=== PATIENT | female | born 1955 | race African-American/Black ===

== ENCOUNTER 2017-09-04 21:30 | Emergency (ER) | payer OTHER ==
[~2017-09-04] VITALS: Ht 152.4 cm; Wt 105.0 kg
[~2017-09-04 21:30] MED LIST: ALBU8I INH; HYDR-3535 PO; MECL25CH PO; MOBI15TA PO
[2017-09-04 21:48] VITALS: BP 134/79; PULSE 76; RESP 16; TEMP 98.9; O2SAT 98
--- NOTE | 2017-09-04 22:43 | RADRPT ---
EXAM DATE/TIME: 09/04/2017 22:08 [place] COMPARISON: No previous studies available for comparison. INDICATIONS : Pain post fall. MEDICAL HISTORY : Hypercholesterolemia. Hypertension Seizures, Coronary artery disease, Asthma, Arthritis/ SURGICAL HISTORY : Tubal ligation. Hysterectomy. section. Tendon reapir of Right Ankle. ENCOUNTER: Initial ACUITY: 1 day PAIN SCORE: 10/10 LOCATION: Left Ankle. FINDINGS: Three view examination of the left foot demonstrates scattered osteoarthritic changes with a central subchondral erosion involving the distal articulating surface of the proximal phalanx of fifth ray. T here is some loss of joint space in multiple distal interphalangeal joints as well. Spurring is seen off of the talar head. Calcaneal spur at the plantar aponeurosis. Decrease in Boehler's angle with a flatfoot deformity. No obvious acute fracture, however a. CONCLUSION: 1. Multiple areas of osteoarthritis involving interphalangeal joints as well as the hindfoot. 2. Decreased Boehler's angle with a flatfoot deformity. 3. No fracture. Jorge Lau MD on September 04, 2017 at 22:35 Board Certified Radiologist. This report was verified electronically.
--- NOTE | 2017-09-04 23:25 | PD ---
HPI Chief Complaint: Injury Time Seen by Provider: 23:13 Travel History International Travel<30 days: No Contact w/Intl Traveler<30days: No Traveled to known affect area: No History of Present Illness HPI 62-year-old female here for evaluation of left foot and ankle pain. Patient reports that while wearing her shoes yesterday evening she twisted her left foot and ankle. She has had pain ever since. She takes Percocet regularly for pain and states it is not helping with her pain. Pain is made worse with movement and palpation, slightly improved with rest. She denies any other injuries. No fevers. PFSH Past Medical History Asthma: No Blood Disorders: No Anxiety: Yes Depression: No Heart Rhythm Problems: Yes Cancer: No Cardiovascular Problems: Yes (IRREGULAR HEART RHYTHM) High Cholesterol: Yes Chemotherapy: No Chest Pain: Yes Congestive Heart Failure: No COPD: No Cerebrovascular Accident: No Coronary Artery Disease: Yes Diminished Hearing: No Endocrine: No Gastrointestinal Disorders: Yes (GEN'L NAUSEA BOUTS) Glaucoma: No Genitourinary: No Hepatitis: No Hiatal Hernia: No Hypertension: Yes (RESOLVED) Immune Disorder: No Musculoskeletal: Yes (ARTHRITIS) Neurologic: Yes (SEIZURES YOUTH, NUMBNESS LEFT ARM/ LEGS, VERTIGO) Psychiatric: Yes Reproductive: Yes (PMB) Respiratory: Yes (ASTHMA) Immunizations Current: Yes Myocardial Infarction: No Radiation Therapy: No Renal Failure: No Seizures: Yes (CHILDHOOD) Sleep Apnea: No Thyroid Disease: Yes (STATES "OFF SOME") Ulcer: No Tetanus Vaccination: < 5 Years Influenza Vaccination: No ?: Not Menopausal: Yes : 6 Para: 2 Miscarriage: 5 Tubal Ligation: Yes Past Surgical History Abdominal Surgery: No AICD: No Arteriovenous Shunt: No Body Medical Devices: SCREW RIGHT ANKLE Cardiac Surgery: No Section: Yes (X 2) Ear Surgery: No Endocrine Surgery: No Eye Surgery: No Genitourinary Surgery: No Gynecologic Surgery: Yes ( X 2; TUBAL LIGATION, VAG EXC. FIBROMAS) Hysterectomy: Yes Insulin Pump: No Joint Replacement: No Oral Surgery: No Pacemaker: No Thoracic Surgery: No Social History Alcohol Use: No Tobacco Use: No Substance Use: No Allergies-Medications (Allergen,Severity, Reaction): Coded Allergies: Sulfa (Sulfonamide Antibiotics) (Unverified Allergy, Severe, Shortness of Breath, 09/04/17) codeine (Unverified Allergy, Severe, rapid heart rate, sob, 09/04/17) hepatitis B virus vaccine (Unverified Allergy, Severe, SKIN BURNING TYPE FEELING, 09/04/17) hepatitis B virus vaccine, recombin (Unverified Allergy, Severe, SKIN BURNING TYPE FEELING, 09/04/17) ibuprofen (Unverified Allergy, Severe, HEART RACING, 09/04/17) primidone (Unverified Allergy, Severe, BRADYCARDIA (40 BPM), 09/04/17) Reported Meds & Prescriptions Reported Meds & Active Scripts Active Meclizine Hcl (Meclizine HCl) 25 Mg Chw 25 Mg PO Q8H PRN Reported Mobic (Meloxicam) 15 Mg Tab 15 Mg PO DAILY Ventolin Hfa (Albuterol Sulfate) 8 Gm Aero 2 Puff INH DAILY PRN * SHAKE WELL BEFORE USE * Lortab 10 mg/325 mg (Hydrocodone/Acetaminophen 10 mg/325 mg) 1 Tab 1 Tab PO QID PRN Review of Systems Except as stated in HPI: all other systems reviewed are Neg Physical Exam Narrative GENERAL: Well-developed, well-nourished, comfortable, no apparent distress. CARDIOVASCULAR: Regular rate and rhythm. Bilateral dorsalis pedis pulses are brisk and equal. MUSCULOSKELETAL: Flatfoot deformity to bilateral feet. Left foot and ankle without obvious bony deformity with tenderness along the hindfoot both medially and laterally, no warmth or erythema, no swelling or induration. Bilateral calves are supple, nontender. NEUROLOGICAL: Awake and alert. No obvious cranial nerve deficits. Motor grossly within normal limits. Normal speech. PSYCHIATRIC: Appropriate mood and affect; insight and judgment normal. Data Data Last Documented VS Vital Signs Date Time Temp Pulse Resp B/P (MAP) Pulse Ox O2 Delivery O2 Flow Rate FiO2 09/04/17 21:48 98.9 76 16 134/79 (97) 98 Room Air Orders Orders Ice/Cold Pack (09/04/17 21:59) Foot, Complete ([id number]) (09/04/17 21:59) MDM Medical Decision Making Medical Screen Exam Complete: Yes Emergency Medical Condition: Yes Differential Diagnosis Left foot fracture versus sprain versus ankle fracture versus sprain, septic arthritis unlikely Narrative Course Left foot x-ray ordered in triage. Left foot x-ray: CONCLUSION: 1. Multiple areas of osteoarthritis involving interphalangeal joints as well as the hindfoot. 2. Decreased Boehler's angle with a flatfoot deformity. 3. No fracture. The patient was made aware of all findings. She is resting comfortably. There are no clinical exam findings suggestive of septic arthritis. Patient will be placed in a postop shoe and advised to take ibuprofen along with her Percocet for pain management. She was advised to follow-up with podiatry this week. She was informed on when to return to the emergency department. She verbalizes understanding and agreement with plan. Diagnosis Primary Impression: Left foot pain Additional Impression: Osteoarthritis Qualified Codes: M19.079 - Primary osteoarthritis, unspecified ankle and foot Referrals: Susan Arce [facility] 3 days Internetworking Technician Primary Care Physician 3 days Additional Instructions: Follow-up with your primary care physician this week. Follow-up with day care attendant Dr. Arce or a day care attendant of your choice this week. Return to the emergency department for worsening symptoms or any other concerns. Disposition: 01 DISCHARGE HOME Condition: Stable Marc Davis MD Sep 04, 2017 23:25
== END 2017-09-05 00:02 | disposition home or self-care (01) ==
LOC: NEPD 21:30
DX: M25.572 Pain in left ankle and joints of left foot (principal); M19.079 Primary osteoarthritis, unspecified ankle and foot
CPT/HCPCS: 73630; 99283; E0113; L3260

== ENCOUNTER 2018-04-06 10:21 | Observation (INO) ==
[~2018-04-06 10:21] MED LIST changes: -ALBU8I INH; -HYDR-3535 PO; +Lidocaine 1%/Epinephrine 1:100,000 Inj 30 ML Vial ONE; -MECL25CH PO; -MOBI15TA PO
[2018-04-06] MEDS ORDERED: Ampicillin/Sulbactam Inj 3 GM in Sodium Chloride 0.9% Inj 100 ML IV.SIG PRN (11:00)
[2018-04-06] MEDS ORDERED: Ampicillin/Sulbactam 3 GM Vial ONE (11:09)
[2018-04-06] MEDS ORDERED: Sugammadex Inj 200 MG/2 ML Vial IV.PUSH ONE (11:46)
[2018-04-06] MEDS ORDERED: fentaNYL Citrate Inj 250 MCG/5 ML Ampul ONE (11:46)
[2018-04-06] MEDS ORDERED: Lidocaine PF 1% Inj 5 ML Syringe INFILTRATN ONE (12:12)
[2018-04-06] MEDS ORDERED: Morphine Inj 4 MG/ML Vial ONE (13:33)
[2018-04-06] MEDS ORDERED: Chlorhexidine Gluconate 2% 1 Pack (2 Cloths) TOPICAL ONE (13:40)
[2018-04-06] MEDS ORDERED: Metoprolol Tartrate 25 MG Tablet PO ONE (13:40)
[2018-04-06] MEDS ORDERED: oxyCODONE/Acetaminophen 10/325 Tablet PO PRN (13:43)
[2018-04-06] MEDS ORDERED: Sodium Chlor 0.9% Inj 500 ML IV.SIG SCH (14:00)
[2018-04-06] MEDS: Ampicillin/Sulbactam Inj 3 GM in Sodium Chloride 0.9% Inj 100 ML IV.SIG SCH (19:27)
[2018-04-07] MEDS: Ampicillin/Sulbactam Inj 3 GM in Sodium Chloride 0.9% Inj 100 ML IV.SIG SCH (04:21)
[2018-04-07] MEDS ORDERED: diazePAM 5 MG Tablet PO SCH (09:00)
--- NOTE | 2018-04-22 09:31 | MP ---
cc: Caden Greenfield MD DATE OF OPERATION: 04/06/2018 SURGEON: Caden Greenfield MD. PREOPERATIVE DIAGNOSES: 1. Nasal airway obstruction. 2. Nasal septal deviation. 3. Hypertrophy of inferior turbinates. 4. Chronic sinus headache. POSTOPERATIVE DIAGNOSES: 1. Nasal airway obstruction. 2. Nasal septal deviation. 3. Hypertrophy of inferior turbinates. 4. Chronic sinus headache. OPERATION PERFORMED: 1. Open repair, nasal septal fracture. 2. Bilateral submucosal resection of inferior turbinates. INDICATIONS: Documented in the history and physical. DETAILS OF PROCEDURE: The patient was taken to OR #2 and placed in the supine position. Following induction of general anesthesia and intubation, the nose was packed bilaterally with cotton pledgets saturated in 0.05% oxymetazoline. Septal mucosa and inferior turbinates were injected with a total of 6 mL of 1% Xylocaine with epinephrine 1:100,000 and she was then prepped and draped for surgery. The packing was removed and a hemitransfixion incision was made in the left nasal vestibule. Through this incision, the mucosa of the septum was elevated bilaterally as far as the junction of the bony and cartilaginous septum. This revealed an end-on view of the quadrangular cartilage, which showed numerous old long healed fracture segments of the cartilage extending into the nasal airways bilaterally. A cumulative area of 2 x 2 cm was removed using a Kris elevator and Lapel-Rowan forceps. The caudal cartilaginous strut was fully mobilized and placed in the midline at the top of the anterior nasal spine. When this was completed, the septal mucosa was elevated from the bony septum and the maxillary crest and these were removed using Lapel-Rowan forceps and a 6 mm Asif chisel. This was completed preserving the anterior nasal spine. The incision was then closed with a running suture of 4-0 chromic and the mucosal layers of septum were approximated to each other with a quilting stitch of 4-0 plain gut. The inferior turbinates were addressed next. They were fractured out medially and stab incisions made along their inferior surfaces. Through these incisions, the submucosal soft tissue was reduced using a curette and preserving the conchal bone. The incisions were then cauterized using a suction Bovie at 45 herman and the remnants of the inferior turbinates were then re-lateralized to the lateral nasal wall. The nose was then repacked with cotton pledgets. The nose was then packed with Merocel tampons coated in mupirocin ointment and the procedure was terminated. The patient was reversed from anesthesia and taken to recovery in good condition. COMPLICATIONS: There were no complications. ESTIMATED BLOOD LOSS: 50 mL. MD ALEX Kirkpatrick/cedric , 08:37 AM , 08:44 AM
== END 2018-04-07 10:16 | disposition home or self-care (01) ==
LOC: PH3 10:21 → PHSDC 10:21
PROVIDERS: ADMIT Otolaryngology; ATTEND Otolaryngology